=== PATIENT | female | born 1975 | race Caucasian/White ===

== ENCOUNTER 2017-01-29 12:12 | Inpatient (IN) | payer BC, OTHER ==
[~2017-01-29] VITALS: Ht 152.4 cm; Wt 61.2 kg
[2017-01-29] MEDS ORDERED: MIRALAX 17 GM POWD.PACK PO PRN (19:45)
[2017-01-29] MEDS ORDERED: THIAMINE HCL 200 MG/2 ML VIAL IM ONE (19:45)
[2017-01-29] MEDS ORDERED: ONDANSETRON ODT 4 MG TAB.RAPDIS SL PRN (19:45)
[2017-01-29] MEDS ORDERED: NICOTINE 14 MG/24HR PATCH TD PRN (19:45)
[2017-01-29] MEDS ORDERED: CLONIDINE HCL 0.1 MG TABLET PO PRN (19:45)
[2017-01-29] MEDS ORDERED: LORAZEPAM 2 MG/1 ML VIAL IM PRN (19:45)
[2017-01-29] MEDS ORDERED: NICOTINE POLACRILEX 4 MG GUM-PK OF TEN BC PRN (19:45)
[2017-01-29] MEDS ORDERED: ACETAMINOPHEN 325 MG TABLET PO PRN (19:45)
[2017-01-29] MEDS ORDERED: MAG HYDROX/AL HYDROX/SIMETH 30 ML LIQUID UDC PO PRN (19:45)
[2017-01-29] MEDS ORDERED: LOPERAMIDE HCL 2 MG CAPSULE PO PRN ×2 (19:45)
[2017-01-29] MEDS ORDERED: LORAZEPAM 1 MG TABLET PO PRN ×2 (19:45)
[2017-01-29] MEDS ORDERED: MAGNESIUM HYDROXIDE 30 ML LIQUID UDC PO PRN (19:45)
[2017-01-29] MEDS ORDERED: ONDANSETRON 4 MG/2 ML VIAL IM PRN (19:45)
[2017-01-29] MEDS ORDERED: diphenhydrAMINE 50 MG CAPSULE PO PRN (19:45)
[2017-01-29] MEDS ORDERED: IBUPROFEN 600 MG TABLET PO PRN (19:45)
[2017-01-29] MEDS ORDERED: DICYCLOMINE HCL 20 MG TABLET PO PRN (19:45)
[2017-01-29 20:20] VITALS: BP 121/67
--- NOTE | 2017-01-29 20:20 | NUR ---
Pre admission Assessment Patient is a 41 year old female AOX4, presented to [facility] to detoxify from ETOH. She also is abusing methamphetamine daily. last used today. She is the primary source of information. Patient appears moderately intoxicated, last drank today approximately 3 buzz balls (vodka and grape juice) patient appears anxious, and tearful . She denies SI or HI. patient is cooperative. Patient reported NKA. Patient's current vital signs are as follows; BP 121/67, T 96.8, P 84, R 18, SPO2 97% on RA. denies pain at this time. Patient was educated regarding unit protocols and policies. Patient verbalized understanding. Will continue with further assessment when patient is up on the unit.
[2017-01-29] MEDS ORDERED: ALBU18HF2 IH (20:26)
[2017-01-29 20:30] VITALS: BP 130/70
--- NOTE | 2017-01-29 20:30 | NUR ---
Admission note Patient is a 41 year old female, AOX4, admitted to [facility] for Alcohol detox. She also has been abusing methamphetamine daily. She is the primary source of information. Patient is admitted under the care of Dr. Ma to room 311. Urine not yet provided by patient for urine drug screen. Patient placed on 1:1 awaiting urine. Thorough body search and belonging check done by MEDICAL SECRETARY. Skin intact. Patient appears anxious and tearful. Patient is cooperative during nursing assessment. Patient denies any allergies and has no history of seizures. Admitting vital signs are as follows; BP 130/70, P 94, R 16, T 98.1 Spo2 98% on RA, denies pain at this time with Current CIWA score of 4. Discussed substance use history. Patient started drinking ETOH when she was 16 years old, She reports starting Methamphetamines at age 22. Current alcohol use: 6 beers or 5-6 mixed drink daily x last 4 months. Methamphetamine: 1 gm, smoking daily x last 4 months. Last attempt at rehab -17 at [place] by the [facility]. Discussed medical history. Patient reported PMH of asthma, allergic Rhinitis, and ADHD. Lungs clear to auscultation. Patient denies any recent exacerbation of asthma. She states she has an albuterol inhaler at home, but has not used it in a very long time. Patient denies diagnosis of depression although she is tearful at present time. She admits to contemplating suicide in last few weeks with the plan to jump off a local bridge ([place] [address]) Patient denies actually attempting and does not have history of suicide attempts or self injurious behavior. Patient contracts for safety now and denies any thoughts of self harm. Patient reports loss of marriage and custody of her three sons this past year has contributed to depression, as well as having an one week ago. Family medical history discussed. Patient reports father was recently diagnosed with diabetes. Denies other history. Patient reports multiple attempts at detox, stating last one at [place] by the [facility] in September 2016. Patient refused PNA/FLU vaccines.. Skin check done with no findings. Patient oriented to unit by MEDICAL SECRETARY. Safety measures in place. Will continue to monitor patient.
[2017-01-29] MEDS ORDERED: LORAZEPAM 1 MG TABLET PO SCH (21:00)
--- NOTE | 2017-01-29 22:10 | NUR ---
urine obtained for drug screen and .
[2017-01-29 22:38] LABS: *URINE HCG, QUAL POSITIVE (NEGATIVE)
[2017-01-29 22:45] LABS: BASOPHILS % (AUTO) 0.3 % (0.0-2.0); EOSINOPHILS # (AUTO) 0.2 K/uL (0.0-0.7); EOSINOPHILS % (AUTO) 2.1 % (0.0-7.0); HEMATOCRIT 39.3 % (37-47); HEMOGLOBIN 12.7 G/DL (12.0-16.0); LYMPHOCYTES # (AUTO) 2.3 K/UL (0.8-4.8); LYMPHOCYTES % (AUTO) 27.2 % (20.5-51.5); MEAN CORPUSCULAR HEMOGLOBIN 29.8 UUG (27.0-31.0); MEAN CORPUSCULAR HGB CONC 32 g/dL (32.0-37.0); MONOCYTES # (AUTO) 0.5 K/UL (0.1-1.30); MONOCYTES % (AUTO) 6.2 % (0.0-11.0); NEUTROPHILS # (AUTO) 5.6 K/UL (1.8-8.9); NEUTROPHILS % (AUTO) 64.2 % (38.5-71.5); PLATELET COUNT (AUTO) 307 K/UL (150-450); RED BLOOD CELL COUNT(AUTO) 4.27 MIL/UL (4.2-5.4); WHITE BLOOD COUNT (AUTO) 8.6 K/UL (4.0-11.2)
[2017-01-29 22:49] LABS: *AMPHETAMINE, URINE POSITIVE (NEGATIVE); *BARBITURATE, URINE NEGATIVE (NEGATIVE); *CANNABINOID, URINE NEGATIVE (NEGATIVE); *COCCAINE, URINE NEGATIVE (NEGATIVE); *OPIATE, URINE NEGATIVE (NEGATIVE); *PHENCYCLIDINE SCREEN,URINE NEGATIVE (NEGATIVE)
[2017-01-29 23:05] LABS: ETHANOL < 3 MG/DL (0-0)
[2017-01-29 23:07] LABS: ALANINE AMINOTRANSFERASE 26 U/L (14-59); ALKALINE PHOSPHATASE 66 U/L (50-136); AMYLASE 59 U/L (25-115); ASPARTATE AMINOTRANSFERASE 14 U/L (15-37); BILIRUBIN,TOTAL 0.2 mg/dL (0.2-1.0); CARBON DIOXIDE 30 mmol/L (21-32); CHLORIDE 101 mmol/L (98-107); GLUCOSE 138 mg/dL (74-106); MAGNESIUM 1.7 mg/dL (1.8-2.4); POTASSIUM 3.7 mmol/L (3.5-5.1); TOTAL PROTEIN, SERUM 6.5 g/dL (6.4-8.2); UREA NITROGEN, BLOOD 10 mg/dL (7-18)
--- NOTE | 2017-01-29 23:07 | NUR ---
hCG POSITIVE. PATIENT HAD AN ONE WEEK AGO/ HORMONE LEVELS REMAIN ELEVATED. MD DR MTZ NOTIFIED AND AWARE AND ATIVAN TO BE GIVEN PRESCRIBED.
[2017-01-29 23:15] VITALS: BP 90/56
[2017-01-29] MEDS ORDERED: LORAZEPAM 1 MG TABLET ONE (23:19)
[2017-01-29] MEDS ORDERED: THIAMINE HCL 200 MG/2 ML VIAL ONE (23:19)
--- NOTE | 2017-01-29 23:20 | NUR ---
PATIENT SEDATED/ASLEEP, WITH DECREASED BP 90/56, P 71, R 16, T 98.4, SPO2 98% ON RA. ATIVAN 2MG SCHEDULED FOR 2100 NON ADMINISTERED. CHARGE NURSE NOTIFIED.
[2017-01-30] MEDS ORDERED: [UNRECOGNIZED DRUG - CODE] PO (01:53)
[2017-01-30 04:00] VITALS: BP 111/63
--- NOTE | 2017-01-30 04:00 | NUR ---
0400 CIWA DEFERRED FOR SLEEP
--- NOTE | 2017-01-30 06:52 | NUR ---
END OF SHIFT REPORT PATIENT IS A 41 YO FEMALE ADMITTED TO [facility] ON 01-29-17 FOR ALCOHOL DETOX CURRENTLY USING 5-6 MIXED DRINKS OR 6-12 BEERS DAILY. PATIENT IS ALSO USING METHAMPHETAMINE 1 GM PER DAY. PATIENT IS CURRENTLY ON A FIVE DAY ATIVAN TAPER. 2100 DOSE NON ADMINISTERED PATIENT WAS HAVING DIFFICULTY PROVIDING URINE, BY TIME URINE PROVIDED AND RESULT OBTAINED TIME WAS 2310, VS 2315 BP 90/56, T 98.4, P 71, R 16, SPO2 98% ON RA. CIWA 1. PATIENT HCG POSITIVE. ELEVATED HORMONE NOTED PATIENT HAD AN LAST WEEK. DR MTZ NOTIFIED AND ORDER GIVEN TO ADMINISTER ATIVAN/MEDS WITH POSITIVE HCG. PATIENT SLEEPING/SEDATED AND UNABLE TO ADMINISTER ATIVAN. ATIVAN WHICH WAS ORDERED FOR 2100 NON ADMINISTERED FOR SEDATION. PATIENT WITH PMH OF ASTHMA, ADHD, ALLERGIC RHINITIS, AND . SHE IS A FULL CODE ON A REGULAR DIET WITH NKA. PATIENT ON BOTH SEIZURE AND FALL PRECAUTIONS. MOOD REMAINS DYSTHYMIC AND ANXIOUS. DENIES CURRENT SI OR HI. URINE OBTAINED. LABS DRAWN. 0400 VS BP 111/63, P 67, R 14, SPO2 98%ON RA, T 97.9. CIWA DEFERRED FOR SLEEP. SLEPT A TOTAL OF 7 HOURS. INTAKE 791 ML OUTPUT [address] VOIDS[address] SAFETY MEASURES IN PLACE. BED LOCKED IN LOWEST POSITION WITH 2 SIDE RAILS UP FOR SAFETY. CALL LIGHT WITHIN REACH. REPORT GIVEN TO AM NURSE.
--- NOTE | 2017-01-30 07:38 | NUR ---
Start of shift note; Received report from night nurse. Patient is a 41 year old female admitted on 01/29/17 for ETOH and methamphetamine dependence. Patient had an 1 week ago, HCG remained elevated MD was notified per endorsement. Patient reported history of asthma, ADHD, allergic rhinitis. NKA, on full code status and on regular diet. Patient was placed on 5 day Ativan to start today depending on withdrawal symptoms. LAB results to be relayed to MD. Patient is on fall and seizure precaution. Bed in lowest position, call light within reach. Will continue to monitor patient.
[2017-01-30 08:00] VITALS: BP 101/61
[2017-01-30] MEDS ORDERED: TUBERCULIN,PURIF.PROT.DERIV. 5 TU/0.1 ML TEST ID ONE (09:00)
[2017-01-30] MEDS ORDERED: MAGNESIUM OXIDE 400 MG TABLET PO ONE (09:30)
[2017-01-30] MEDS: MULTIVITAMINS,THERAPEUTIC TABLET PO SCH (09:57)
[2017-01-30] MEDS: LORAZEPAM 1 MG TABLET PO SCH ×3 (09:57→21:37)
[2017-01-30] MEDS: FOLIC ACID 1 MG TABLET PO SCH (09:57)
[2017-01-30] MEDS: THIAMINE HCL 100 MG TABLET PO SCH (09:57)
--- NOTE | 2017-01-30 10:09 | NUR ---
Magnesium supplement; Patient's magnesium is low, MD ordered Magnesium oxide 400mg PO one time for supplement. Patient was educated regarding withdrawal symptoms and the importance of compliance to treatment, patient verbalized understanding. Per Md HCG level will remain positive for about 2 weeks due to recent and per MD it is ok to administer medication to prevent seizures d/t withdrawals. Will closely monitor patient.
[2017-01-30] MEDS ORDERED: ALBUTEROL INHALER INH PRN (11:15)
[2017-01-30 12:00] VITALS: BP 110/62
--- NOTE | 2017-01-30 15:30 | NUR ---
Ativan held; Patient appears to be sedated, BP of 98/58, HR 52 and respirations of 18. Ativan dose for 1500 was held due to sedation. MD was notified. Will continue to monitor patient.
[2017-01-30 16:00] VITALS: BP 94/64
--- NOTE | 2017-01-30 17:12 | NUR ---
Therapist prompted client to participate in daily group. Client stated that she would if she was feeling up to it.
--- NOTE | 2017-01-30 18:39 | NUR ---
End of shift note; Patient is AOx4. Patient is a 41 year old female admitted on 01/29/17 for ETOH and methamphetamine dependence. Patient had an 1 week ago, HCG remained elevated MD aware. Patient reported history of asthma, ADHD, allergic rhinitis. NKA, on full code status and on regular diet. Patient was placed on 5 day Ativan taper, 1500 dose held due to sedation. Patient is on fall and seizure precaution. Patient remained compliant with treatment plan and medication regime. All safety measures secured. Met all needs.
--- NOTE | 2017-01-30 19:32 | NUR ---
Start of shift note Patient is a 41 year old female admitted on 01-29-17 for Alcohol detox. Patient is on a five day Ativan taper. Her dose at 1300 today held for sedation. Patient last CIWA 3 at 1600. Patient also has been abusing Methamphetamine daily approximately 1 gm. She has PMH of 1 week ago, asthma, allergic rhinitis, and ADHD. Patient has been resting in bed. At change of shift patient asleep, resting comfortably with no complaints. Patient has NKA, is on a regular diet, and is on fall and seizure precautions. she is a full code. Safety measures in place. 2 side rails up for safety, bed locked and in lowest position. Call light within reach. Report received from AM nurse.
[2017-01-30 20:00] VITALS: BP 104/63
--- NOTE | 2017-01-30 21:46 | NUR ---
PRN medication Motrin 600 mg PO given at 2137 for bodyaches of 6-7 on scale 1-10. Effect pending.
--- NOTE | 2017-01-30 22:37 | NUR ---
Reassessment of patient Patient reassessed one hour after PRN Motrin 600 mg PO given for bodyaches of 6-7 on scale 1-10. Effectiveness noted after one hour with decrease in body aches to a 2-3.
[2017-01-31] VITALS: BP 89/55
--- NOTE | 2017-01-31 | NUR ---
0000 CIWA deferred for sleep
[2017-01-31 04:00] VITALS: BP 98/51
--- NOTE | 2017-01-31 04:00 | NUR ---
0400 CIWA deferred for sleep
--- NOTE | 2017-01-31 06:49 | NUR ---
End of shift Patient is a 41 year old female admitted on 01-29-17 for Alcohol detox. Patient is on a five day Ativan taper. Patient also has been abusing Methamphetamine daily approximately 1 gm. She has PMH of 1 week ago, asthma, allergic rhinitis, and ADHD. Patient has NKA, is on a regular diet, and is on fall and seizure precautions. she is a full code. VS at 2000 BP 104/68, P 65, R 12, SPO2 97% on RA, T 98.2 CIWA 5. Patient with generalized body aches. Motrin 600 mg PO given with good effect noted. VS at 0000 BP 89/55, P 67, R 14, SPO2 94% on RA, T 97.8. CIWA deferred for sleep. 0400 VS BP 98/51, P 52, R 14, SPO2 98% on RA, T 97.8. CIWA deferred for sleep. Slept a total of 9 hours, Intake 250ml Output 1 void. Safety measures in place. 2 side rails up for safety, bed locked and in lowest position. Call light within reach. Report given to AM nurse.
[2017-01-31 08:00] VITALS: BP 106/69
--- NOTE | 2017-01-31 08:02 | NUR ---
Start of shift note; Received report from night nurse. Patient is a 41 year old female admitted on 01/29/17 for ETOH and methamphetamine dependence. Patient had an 1 week ago, HCG remained elevated MD was notified per endorsement. Patient reported history of asthma, ADHD, allergic rhinitis. NKA, on full code status and on regular diet. Patient was placed on 5 day Ativan , no adverse reactions noted. Patient's last CIWA is 5 at 2000. Patient slept for 9 hours. Patient is on fall and seizure precaution. Bed in lowest position, call light within reach. Will continue to monitor patient.
[2017-01-31] MEDS: LORAZEPAM 1 MG TABLET PO SCH ×4 (09:12→20:32)
[2017-01-31] MEDS: FOLIC ACID 1 MG TABLET PO SCH (09:12)
[2017-01-31] MEDS: NORETHINDRONE 0.35 MG PO SCH (09:12)
[2017-01-31] MEDS: MULTIVITAMINS,THERAPEUTIC TABLET PO SCH (09:12)
[2017-01-31] MEDS: THIAMINE HCL 100 MG TABLET PO SCH (09:12)
[2017-01-31 11:07] LABS: HEPATITIS B SURFACE AG Negative (Negative)
[2017-01-31 12:00] VITALS: BP 104/63
[2017-01-31 16:00] VITALS: BP 93/62
--- NOTE | 2017-01-31 18:21 | NUR ---
End of shift; Patient is AOX4. Patient is a 41 year old female admitted on 01/29/17 for ETOH and methamphetamine dependence. Patient had an 1 week ago, HCG remained elevated MD was notified per endorsement. Patient reported history of asthma, ADHD, allergic rhinitis. NKA, on full code status and on regular diet. Patient was placed on 5 day Ativan , no adverse reactions noted. Patient remained compliant with treatment plan and medication regime. Medications were effective in reducing withdrawal symptoms. All safety measures secured. Met all needs.
--- NOTE | 2017-01-31 19:22 | NUR ---
Start of shift note Patient is a 41 year old female admitted on 01-29-17 for Alcohol detox. Patient last CIWA 4 at 1600. Patient also has been abusing Methamphetamine daily approximately 1 gm. She has PMH of 1 week ago, asthma, allergic rhinitis, and ADHD. Patient has been resting in bed. At change of shift patient asleep, resting comfortably with no complaints. Patient has NKA, is on a regular diet, and is on fall and seizure precautions. she is a full code. Safety measures in place. 2 side rails up for safety, bed locked and in lowest position. Call light within reach. Report received from AM nurse.
[2017-01-31 20:00] VITALS: BP 109/59
[2017-02-01] VITALS: BP 86/53
--- NOTE | 2017-02-01 | NUR ---
0000 CIWA deferred for sleep
[2017-02-01 04:00] VITALS: BP 88/58
--- NOTE | 2017-02-01 04:00 | NUR ---
0400 CIWA deferred for sleep
--- NOTE | 2017-02-01 06:49 | NUR ---
311 End of shift Patient is a 41 year old female admitted on 01-29-17 for Alcohol detox. Patient is on a five day Ativan taper. Patient also has been abusing Methamphetamine daily approximately 1 gm. She has PMH of 1 week ago, asthma, allergic rhinitis, and ADHD. Patient has NKA, is on a regular diet, and is on fall and seizure precautions. she is a full code. VS at 2000 BP 109/59, P 80, R 16, SPO2 99% on RA, T 97.7 CIWA 4. VS at 0000 BP 89/53, P 76, R 14, SPO2 97% on RA, T deferred for sleep. CIWA deferred for sleep. 0400 VS BP 88/58, P 76, R 16, SPO2 97% on RA, T 98.1. CIWA deferred for sleep. Slept a total of 11 hours, Ebusbg165 ml Output 1 void. Safety measures in place. 2 side rails up for safety, bed locked and in lowest position. Call light within reach. Report given to AM nurse.
--- NOTE | 2017-02-01 07:30 | NUR ---
START OF SHIFT Pt 41 y/o female admitted for etoh use disorder stimulant use disorder. Pt received in room on bed with eyes closed resting, but easily arousable to name. Perrla. Pt alert and oriented to name, place, and time. Respirations even and unlabored. Bilateral hand tremors noted slightly. Pt appears slightly irritable this morning. Pt with c/o night terrors last night. Will make MD aware this morning. It was reported that pt slept for 11 hours last night. Bed on lowest position with side rails x2 up for safety. Call light within reach. No distress noted at this time.
[2017-02-01 08:00] VITALS: BP 87/59
[2017-02-01] MEDS: THIAMINE HCL 100 MG TABLET PO SCH (08:45)
[2017-02-01] MEDS: FOLIC ACID 1 MG TABLET PO SCH (08:45)
[2017-02-01] MEDS: LORAZEPAM 1 MG TABLET PO SCH ×3 (08:46→22:00)
[2017-02-01] MEDS: NORETHINDRONE 0.35 MG PO SCH (08:46)
[2017-02-01] MEDS: MULTIVITAMINS,THERAPEUTIC TABLET PO SCH (08:46)
[2017-02-01 12:21] VITALS: BP 111/74
[2017-02-01 17:09] VITALS: BP 109/68
--- NOTE | 2017-02-01 18:08 | NUR ---
END OF SHIFT Pt 41 y/o female admitted for etoh use disorder stimulant use disorder. Pt alert and oriented to name, place, and time. Perrla. Skin warm and slightly moist to touch. Respirations even and unlabored. Bilateral hand tremors noted. Pt observed mostly in recreation room throughout the day. pt attended group activity today. Pt was seen by MD today. Pt medication compliant and tolerated well. No ASE noted. Bed on lowest position with side rails x 2 up for safety. Call light within reach. No distress noted at this time.
[2017-02-01 20:00] VITALS: BP 90/58
--- NOTE | 2017-02-01 20:00 | NUR ---
Start of Shift Pt is a 41 year old female admitted for ETOH dependence, placed on 5 day Ativan taper. Pt reported consuming 6-12 beers or 5-6 mixed drinks. Pt reported using of methamphetamine 1g/daily. PMH: asthma, ADHD, 1 week ago and allergic rhinitis. NKA, regular diet, fall/seizure precautions and full code. Upon assessment, pt presents with fatigue, skin flushed/clammy, pt is irritable, respirations even/unlabored, denies SOB/chest pain, denies n/v/d. Safety measures in place, call light within reach, side rails up x2, bed locked and in low position. Will continue to monitor.
--- NOTE | 2017-02-01 21:30 | NUR ---
Medication Refusal Pt refused scheduled medications Ativan 1mg and Prazosin 1mg. Risks/benefits explained, education provided. Pt is irritated and states, "I said I don't want them!" Safety measures in place, will continue to monitor.
[2017-02-01] MEDS: PRAZOSIN HCL 1 MG CAPSULE PO SCH (22:00)
[2017-02-02] VITALS: BP 86/65
--- NOTE | 2017-02-02 | NUR ---
CIWA deferred due to pt sleeping, to assess while pt is awake as ordered. BP 86/65, pulse 76, SpO2 95% room air, resp 16, temp 98.1, no pain 0/[address], will continue to monitor.
--- NOTE | 2017-02-02 04:00 | NUR ---
CIWA deferred due to pt sleeping, to assess while pt is awake as ordered. Pt refused to be woken up for 0400 VS assessment Safety measures in place, will continue to monitor.
--- NOTE | 2017-02-02 07:00 | NUR ---
End of Shift Pt is a 41 year old female admitted for ETOH dependence, placed on 5 day Ativan taper. Pt reported consuming 6-12 beers or 5-6 mixed drinks. Pt reported using of methamphetamine 1g/daily. PMH: asthma, ADHD, 1 week ago and allergic rhinitis. NKA, regular diet, fall/seizure precautions and full code. During shift, pt presented with fatigue, skin flushed/clammy, pt was irritable and refused scheduled medications Ativan 1mg and Prazosin 1mg. Risks/benefits explained, education provided. Pt continued to state, "I said I don't want them!". No PRN medications administered during shift. lates CIWA 2. Pt slept for 9 hours, intake of 500 ml PO, voids x2 and stool x0. Safety measures in place, call light within reach, side rails up x2, bed locked and in low position. Endorsed to day shift nurse.
--- NOTE | 2017-02-02 07:30 | NUR ---
START OF SHIFT Pt 41 y/o female admitted for etoh use disorder stimulant use disorder. Pt received in room on bed awake. Perrla. Pt alert and oriented to name, place, and time. Respirations even and unlabored. Bilateral hand tremors noted slightly. Skin warm and slightly moist to touch. Pt was apologetic about refusing medications at 2100 last night. It was reported that pt slept for 9 hours last night. Bed on lowest position with side rails x2 up for safety. Call light within reach. No distress noted at this time.
[2017-02-02 08:00] VITALS: BP 105/69
[2017-02-02] MEDS: LORAZEPAM 1 MG TABLET PO SCH ×2 (08:43→21:36)
[2017-02-02] MEDS: THIAMINE HCL 100 MG TABLET PO SCH (08:43)
[2017-02-02] MEDS: NORETHINDRONE 0.35 MG PO SCH (08:43)
[2017-02-02] MEDS: FOLIC ACID 1 MG TABLET PO SCH (08:43)
[2017-02-02] MEDS: MULTIVITAMINS,THERAPEUTIC TABLET PO SCH (08:43)
[2017-02-02 12:00] VITALS: BP 97/59
[2017-02-02 16:00] VITALS: BP 118/64
--- NOTE | 2017-02-02 18:13 | NUR ---
END OF SHIFT Pt 41 y/o female admitted for etoh use disorder stimulant use disorder. Pt alert and oriented to name, place, and time. Perrla. Skin warm and slightly moist to touch. Respirations even and unlabored. Bilateral hand tremors noted. Pt observed mostly in recreation room throughout the day. Pt attended group activity today. Pt was seen by MD today. Pt medication compliant and tolerated well. No ASE noted. Bed on lowest position with side rails x 2 up for safety. Call light within reach. No distress noted at this time.
--- NOTE | 2017-02-02 19:10 | NUR ---
Start of shift note Received report from day shift nurse. Pt is a 41 yo female, A+Ox4, presenting to [facility] for ETOH/Meth dependence. Pt has NKA, is on full code status, and on Regular diet. Pt is on Fall and Seizure precautions. Pt has HX of Asthma, ADHD, Allergic rhinitis and recent . Pt is on 5 day Ativan taper, tolerated well. No s/s of distress noted at this time. Respirations even and unlabored. Will continue to monitor.
[2017-02-02 20:15] VITALS: BP 115/68
[2017-02-02] MEDS: PRAZOSIN HCL 1 MG CAPSULE PO SCH (21:36)
[2017-02-03 00:11] VITALS: BP 124/77
[2017-02-03 04:10] VITALS: BP 118/76
--- NOTE | 2017-02-03 07:00 | NUR ---
End of shift note Pt is a 41 yo female, A+Ox4, presenting to [facility] for ETOH/Meth dependence. Pt has NKA, is on full code status, and on Regular diet. Pt is on Fall and Seizure precautions. Pt has HX of Asthma, ADHD, Allergic rhinitis and recent . Pt is on 5 day Ativan taper, tolerated well. Pt slept for a total of 9 HRS. Last CIWA: 3 @0400. No s/s of distress noted at this time. Respirations even and unlabored. Will endorse to day shift nurse.
--- NOTE | 2017-02-03 07:30 | NUR ---
START OF SHIFT Pt 41 y/o female admitted for etoh use disorder stimulant use disorder. Pt received in room on bed with eyes closed resting, but easily arousable to name. Perrla. Pt alert and oriented to name, place, and time. Respirations even and unlabored. Bilateral hand tremors noted slightly. Skin warm and dry to touch. It was reported that pt slept for 9 hours last night. Bed on lowest position with side rails x2 up for safety. Call light within reach. No distress noted at this time.
[2017-02-03 08:00] VITALS: BP 94/94
[2017-02-03] MEDS ORDERED: LORAZEPAM 1 MG TABLET PO SCH (09:00)
[2017-02-03] MEDS: NORETHINDRONE 0.35 MG PO SCH (09:19)
[2017-02-03] MEDS: FOLIC ACID 1 MG TABLET PO SCH (09:19)
[2017-02-03] MEDS: THIAMINE HCL 100 MG TABLET PO SCH (09:19)
[2017-02-03] MEDS: MULTIVITAMINS,THERAPEUTIC TABLET PO SCH (09:19)
[2017-02-03 12:33] VITALS: BP 102/63
--- NOTE | 2017-02-03 15:47 | NUR ---
ENDORSEMENT Endorsed pt to RN. All information given.
[2017-02-03 17:00] VITALS: BP 116/65
--- NOTE | 2017-02-03 19:17 | NUR ---
END OF SHIFT No PRNs needed or administered during day. V/S remain WNL. Pt remains compliant with treatment plan and is medically cleared for discharge tomorrow. Most recent CIWA is 3 at 1700. All needs met at this time. Night nurse will continue to monitor.
[2017-02-03] MEDS ORDERED: DIPH50CA37 PO (19:31)
[2017-02-03] MEDS ORDERED: NICO4GUM38 BC (19:31)
[2017-02-03] MEDS ORDERED: PRAZ1CAP2 PO (19:31)
[2017-02-03] MEDS ORDERED: IBUP-1955 PO (19:31)
[2017-02-03 20:00] VITALS: BP 124/67
[2017-02-03] MEDS: PRAZOSIN HCL 1 MG CAPSULE PO SCH (20:00)
--- NOTE | 2017-02-03 20:00 | NUR ---
Start of Shift Pt is a 41 year old female admitted for ETOH dependence, placed on 5 day Ativan taper - completed. Pt reported consuming 6-12 beers or 5-6 mixed drinks. Pt reported using of methamphetamine 1g/daily. PMH: asthma, ADHD, 1 week ago and allergic rhinitis. NKA, regular diet, fall/seizure precautions and full code. Upon assessment, reports feeling anxious due to discharge tomorrow, reports mild chills, respirations even/unlabored, denies SOB/chest pain, denies n/v/d. Pt is scheduled for discharge tomorrow. Safety measures in place, call light within reach, side rails up x2, bed locked and in low position. Will continue to monitor.
[2017-02-04] VITALS: BP 107/56
--- NOTE | 2017-02-04 | NUR ---
CIWA deferred due to pt sleeping, to assess while pt is awake as ordered. BP 107/56, pulse 73, SpO2 99% room air, resp 17, temp 98, no pain 0/[address], will continue to monitor.
--- NOTE | 2017-02-04 04:00 | NUR ---
CIWA deferred due to pt sleeping, to assessment, pt is awake as ordered Pt refused to be woken up for VS assessment at [address], will continue to monitor.
--- NOTE | 2017-02-04 07:00 | NUR ---
End of Shift Pt is a 41 year old female admitted for ETOH dependence, placed on 5 day Ativan taper - completed. Pt reported consuming 6-12 beers or 5-6 mixed drinks. Pt reported using of methamphetamine 1g/daily. PMH: asthma, ADHD, 1 week ago and allergic rhinitis. NKA, regular diet, fall/seizure precautions and full code. During shift, pt reported feeling anxious due to discharge today. No s/s of acute withdrawal noted, CIWA 2. No PRN medications administered during shift. Pt slept for 9 hours, intake of 1453 ml PO, void x3 and stool x1. Safety measures in place, call light within reach, side rails up x2, bed locked and in low position. Endorsed to day shift nurse.
--- NOTE | 2017-02-04 07:33 | NUR ---
START OF SHIFT NOTE: Received report from plant operator/shift supervisor nurse. Pt is a 41 year old female admitted for ETOH dependence, placed on 5 day Ativan taper - completed. To be discharged today. Pt is alert and oriented X4. Color good, skin warm and dry. Respirations even and unlabored. Safety precautions observed. Call light within reach.
--- NOTE | 2017-02-04 08:00 | NUR ---
VSS Pt signed discharge papers and medication bag.
[2017-02-04] MEDS: NORETHINDRONE 0.35 MG PO SCH (08:07)
[2017-02-04] MEDS: FOLIC ACID 1 MG TABLET PO SCH (08:07)
[2017-02-04] MEDS: THIAMINE HCL 100 MG TABLET PO SCH (08:07)
[2017-02-04] MEDS: MULTIVITAMINS,THERAPEUTIC TABLET PO SCH (08:07)
[2017-02-04 08:17] VITALS: BP 112/72
--- NOTE | 2017-02-04 09:20 | NUR ---
Pt discharged in stable condition with all valuables, belongings and home meds. Denies SI/HI. To Able To Change via [employer] private car.
== END 2017-02-04 09:20 | disposition other institution (70) | DRG 895 ==
LOC: SRC 18:54
PROVIDERS: ADMIT Internal Medicine; ATTEND Internal Medicine
PROC: HZ2ZZZZ Detoxification Services for Substance Abuse Treatment (ICD-10-PCS; principal; 2017-01-29)
PROC: HZ41ZZZ Group Counseling for Substance Abuse Treatment, Behavioral (ICD-10-PCS; 2017-02-01)
PROC: HZ31ZZZ Individual Counseling for Substance Abuse Treatment, Behavioral (ICD-10-PCS; 2017-02-01)
DX: F10.230 Alcohol dependence with withdrawal, uncomplicated (principal); E83.42 Hypomagnesemia; F15.23 Other stimulant dependence with withdrawal; Y90.9 Presence of alcohol in blood, level not specified; G47.50 Parasomnia, unspecified; F90.9 Attention-deficit hyperactivity disorder, unspecified type; J45.20 Mild intermittent asthma, uncomplicated; Z59.1 Inadequate housing; F17.210 Nicotine dependence, cigarettes, uncomplicated; Z81.1 Family history of alcohol abuse and dependence; Z83.3 Family history of diabetes mellitus; O03.9 Complete or unspecified spontaneous abortion without complication
CPT/HCPCS: 36415; 70030-TC; 80307; 80324; 83735; 84703; 85025; 86580; 86592; 86705; 86803; 87340; 87806; A4663; G0480; J3411; Q0163